=== PATIENT | male | born 1970 | race Two or more races ===

== ENCOUNTER 2019-04-29 18:09 | Emergency (ER) | payer OTHER ==
[~2019-04-29] VITALS: Ht 182.9 cm; Wt 94.3 kg
[2019-04-29] MEDS ORDERED: SKELAXIN800 MG PO (19:52)
[2019-04-29] MEDS ORDERED: NAPROXEN500 MG PO (19:52)
== END 2019-04-29 20:52 | disposition home or self-care (01) ==
LOC: ER 18:09
DX: M54.5 Low back pain (principal)